=== PATIENT | female | born 1990 | race Two or more races ===

== ENCOUNTER 2021-08-19 01:00 | Emergency (ER) | payer SELFPAY ==
[~2021-08-19] VITALS: Ht 167.6 cm; Wt 80.0 kg
[2021-08-19 01:12] VITALS: BP 124/71
--- NOTE | 2021-08-19 01:22 | PHYS DOC ---
General Adult EDM: Chief Complaint: FOOT INJURY PAIN HPI: HPI: 31-year-old female who denies any significant past medical history, presents the ED brought by EMS from [facility] after "120 pound crate" fell on patient's right foot. Complains of pain to the dorsum of her right foot. States she cannot bear weight after this injury that occurred just prior to arrival. Reports she has a 1-year-old and is currently breast-feeding. Her last menstrual period was last week. States " I have never broken anything." Takes no routine prescribed medications. Has no associated knee or hip pain. Denied her head or lose consciousness. Patient is Ukrainian-speaking and element burner services were used, code [id number]. Review of Systems: Review of Systems: Constitutional: Denies fever or chills. [] Eyes: Denies change in visual acuity. [] HENT: Denies nasal congestion or sore throat. [] Respiratory: Denies cough or shortness of breath. [] Cardiovascular: Denies chest pain or edema. [] GI: Denies nausea or vomiting : Denies incontinence or saddle anesthesia Musculoskeletal: Denies back pain or leg pain Integument: Denies rash or diaphoresis Neurologic: Denies headache, focal weakness or sensory changes. [] Psychiatric: Denies depression or anxiety. [] Heart Score: C/O Chest Pain: No Risk Factors: Risk Factors: DM, Current or recent (<one month) smoker, HTN, HLP, family history of CAD, obesity. Risk Scores: Score 0 - 3: 2.5% MACE over next 6 weeks - Discharge Home Score 4 - 6: 20.3% MACE over next 6 weeks - Admit for Clinical Observation Score 7 - 10: 72.7% MACE over next 6 weeks - Early Invasive Strategies Allergies: Allergies: Allergies Coded Allergies Type Severity Reaction Last Updated Verified No Known Drug Allergies 08/19/21 No Physical Exam: PE: Constitutional: Well developed, well nourished, no acute distress, non-toxic appearance. HENT: Normocephalic, atraumatic, Eyes: EOMI, conjunctiva normal, no discharge. Neck: Normal range of motion, supple, Cardiovascular: S1/2 present, regular rhythm Lungs & Thorax: Speaking in full sentences, bilateral equal chest rise, no tachypnea or increased work of breathing Skin: Warm, dry, no erythema, Extremities: dorsal right foot tenderness- early bruising present, dp/pt intact, no pain at both malleoli, fibular head or knee, L5/S1 sensation intact, is able to dorsiflex and plantarflex, juma and invert right foot, no cyanosis, no lowe r extremity edema Neurologic: Alert and oriented X 3, normal motor function, normal sensory function, no focal deficits noted. [] Psychologic: Affect normal, judgement normal, mood-anxious EKG: EKG: [] Radiology/Procedures: Radiology/Procedures: IMAGING REPORT Signed PATIENT: EMRE ORELLANA ACCOUNT: [id number] : 1990 LOCATION: ER AGE: 31 SEX: F EXAM STATUS: REG ER ORD. PHYSICIAN: MAEGAN WAGNER DO REASON: dorsal foot pain, s/p crush injury PROCEDURE: TIBIA FIBULA RIGHT XR FOOT_RIGHT 3 VIEWS, XR EXAM OF ANKLE_RIGHT 3VIEWS, XR RT TIBIA+FIBULA 08/19/2021 1:29 AM INDICATION: Dorsal foot pain status post crush injury COMPARISON: None available. TECHNIQUE: 3 views of the right foot, 3 views of the right ankle and 3 views of the right tibia and fibula are provided. FINDINGS/ IMPRESSION: There is no acute fracture or dislocation. Tibial plafond and talar dome are intact. Ankle mortise is congruent. Joint spaces are maintained. Bone mineralization is within normal limits. Regional soft tissues are within normal limits. There is no soft tissue gas or osseous erosion. No radiopaque foreign body. Electronically signed by: Allan Tabares MD (08/19/2021 2:01 AM) [facility] DICTATED and SIGNED BY: ALLAN TABARES MD DATE: 08/19/21 [id number] 0 Course & Med Decision Making: Course & Med Decision Making Pertinent Labs and Imaging studies reviewed. (See chart for details) Concern for blunt injury to the dorsal aspect of right foot, no fracture seen on x-ray. Will treat with conservative managements, [id number] analgesia, splint and crutches as needed for pain. Will discharge home with strict ED return precautions were given for repeat injury, severe pain or neurologic deficits. Encouraged urgent outpatient follow-up with PMD and orthopedic surgery if pain should persist more than 10 days. Life-threatening processes were considered but are low suspicion at this time, given history, physical exam and ED workup. Pt was educated on all prescription medications and adverse effects. All patient's questions were answered and pt was stable at time of discharge. Life/limb-threatening differential includes but is not limited to, trauma (fracture, dislocation, laceration, compartment syndrome, tendon or ligament injury), neurovascular injury or deficitcva/tia, infection (osteomyelitis, abscess, cellulitis, septic arthritis, necrotizing fasciitis), deep vein thrombosis, renal/cardiac/liver disease, medication adverse effect, lymphedema/anasarca, vascular insufficiency or malignancy, I have spoken with the patient and/or caregivers. I explained the patient's condition, diagnoses and treatment plan based on the information available to me at this time. I have answered the patient and/or caregiver's questions and addressed any concerns. The patient and/or caregivers have a good understanding of patient's diagnosis, condition and treatment plan as can be expected at this point. Vital signs have been stable. Patient's condition is stable and appropriate for discharge from the emergency department. Patient will pursue further outpatient evaluation with primary care physician or other designated or consulting physician as outlined in the discharge instructions. The patient and/or caregivers are agreeable to this plan of care and follow-up instructions have been explained in detail. The patient and/or caregivers have received these instructions in written form and have expressed an understanding of the discharge instructions. The patient and/or caregivers are aware that any significant change of condition or worsening of symptoms should prompt immediate return to this or the closest emergency department or call to 911. Jessee Disclaimer: Jessee Disclaimer: This electronic medical record was generated, in whole or in part, using a voice recognition dictation system. Departure Departure Impression: Primary Impression: Contusion of right foot Disposition: HOME / SELF CARE / HOMELESS Condition: STABLE Referrals: NICOLE AVELAR III DO Seguimiento con dean mdico de atencin primaria para atencin de rutina O SEGUIMIENTO CON MEDICINA FAMILIAR: [address], [address] [place] [address] Telfono: Patient Instructions: Foot Contusion, RICE - Routine Care for Injuries Additional Instructions: SEGUIMIENTO CON ORTOPEDIA: PARA EL MANEJO DEFINITIVO del dolor de pie, considerar evaluacin si el dolor persiste ms de 10 sam [facility] [address] [place] [address] Telfono: INSTRUCCIONES GENERALES DE VLADIMIR DEL DEPARTAMENTO DE EMERGENCIA Keith por venir al Departamento de Emergencias (ED) de [facility] bo y confiando en nosotros con dean cuidado. Confiamos en que tuviste herminia experiencia positiva en nuestra Emergencia Departamento. Si desea hablar con la gerencia del departamento, puede llamar al Director al [phone]. YASIR INSTRUCCIONES DE SEGUIMIENTO SON LAS SIGUIENTES: 1. Tiene un mdico privado? Si no tiene un mdico privado, por favor pida sin lista de recursos de mdicos o clnicas que pueden ayudarlo con la atencin de seguimiento. 2. El Mdico de Urgencias gore interpretado yasir radiografas. El especialista en luna X tambin revisarlos. Si hay un cambio en los hallazgos, se le notificar en 48 horas cuando al todo posible. 3. Se gore realizado herminia prueba de laboratorio o cultivo, se revisarn yasir resultados y se le notificado si necesita un cambio en el tratamiento. INSTRUCCIONES E INFORMACIN ADICIONALES: 1. Dean atencin hoy gore sido supervisada por un mdico especialmente capacitado en emergencias cuidado. Muchos problemas requieren ms de herminia evaluacin para un diagnstico completo y tratamiento. Le recomendamos que programe dean mihai de seguimiento segn lo recomendado para garantizar el tratamiento completo de dean enfermedad o lesin. Si no puede obtener un seguimiento atencin y contina teniendo un problema, o si dean condicin empeora, le recomendamos que volver al servicio de urgencias. 2. No podemos determinar dean condicin de forma collins por telfono ni podemos albertina buenos consejos mdicos por telfono. Por estas razones de seguridad, si llama para recibir atencin mdica consejo, le pediremos que venga al servicio de urgencias para herminia evaluacin adicional. 3. Si tiene alguna pregunta con respecto a estas instrucciones de vladimir, llame al ED al [phone]. INFORMACIN DE SEGURIDAD: En inters de la seguridad, el bienestar y la prevencin de lesiones; te animamos a que lleves tu cinturn de seguridad, si fuma; fumando bastante, y alentamos a la conner a usar un mike protector para andar en bicicleta y otros eventos deportivos que presentan un mayor riesgo de lesiones en la ethan. SI YASIR SNTOMAS EMPEORAN O SE DESARROLLAN NUEVOS SNTOMAS, O SI TIENE PREOCUPACIONES SOBRE DEAN CONDICIN; O SI DEAN CONDICIN EMPEORA MIENTRAS ESPERA DEAN MIHAI DE SEGUIMIENTO; CUALQUIERA COMUNQUESE CON DEAN MDICO DE ATENCIN PRIMARIA, EL MDICO CUYO NOMBRE Y NMERO LE DIERON, O REGRESE AL ED INMEDIATAMENTE. Scripts Diclofenac Sodium (Voltaren Arthritis Pain) 20 Gm Gel..gram. 20 GM TP QID for pain, #1 EACH Prov: MAEGAN WAGNER DO 08/19/21 MAEGAN WAGNER DO Aug 19, 2021 01:22
--- NOTE | 2021-08-19 02:03 | RAD ---
XR FOOT_RIGHT 3 VIEWS, XR EXAM OF ANKLE_RIGHT 3VIEWS, XR RT TIBIA+FIBULA 08/19/2021 1:29 AM INDICATION: Dorsal foot pain status post crush injury COMPARISON: None available. TECHNIQUE: 3 views of the right foot, 3 views of the right ankle and 3 views of the right tibia and fibula are provided. FINDINGS/ IMPRESSION: There is no acute fracture or dislocation. Tibial plafond and talar dome are intact. Ankle mortise is congruent. Joint spaces are maintained. Bone mineralization is within normal limits. Regional soft t issues are within normal limits. There is no soft tissue gas or osseous erosion. No radiopaque foreig n body. Electronically signed by: Yolette Pavon MD (08/19/2021 2:01 AM) [facility]
[2021-08-19] MEDS ORDERED: DICL20GE TP (03:18)
== END 2021-08-19 04:21 | disposition home or self-care (01) ==
LOC: ER 01:00
DX: S90.31XA Contusion of right foot, initial encounter (principal); W18.39XA Other fall on same level, initial encounter; Y93.89 Activity, other specified; Y92.89 Other specified places as the place of occurrence of the external cause; Y99.8 Other external cause status
CPT/HCPCS: 73590; 73610; 73630; 99284; A6450